=== PATIENT | male | born 1975 | race Two or more races ===

== ENCOUNTER 2020-05-05 12:13 | Emergency (ER) | payer MEDICAID, OTHER ==
[~2020-05-05] VITALS: Ht 175.3 cm; Wt 79.5 kg
[2020-05-05 12:20] VITALS: BP 193/118
[2020-05-05] MEDS ORDERED: DICL-211 PO (12:42)
--- NOTE | 2020-05-05 13:03 | NUR ---
Patient seen and assessed by provider.
== END 2020-05-05 13:20 | disposition home or self-care (01) ==
LOC: ER 12:14
DX: F12.90 Cannabis use, unspecified, uncomplicated (principal); M06.9 Rheumatoid arthritis, unspecified; M81.0 Age-related osteoporosis without current pathological fracture; Z79.899 Other long term (current) drug therapy
CPT/HCPCS: 99283